=== PATIENT | female | born 1990 | race Caucasian/White ===

== ENCOUNTER → 2020-12-10 12:50 | Outpatient (CLI) | payer BC, SELFPAY ==
--- NOTE | ~2020-12-10 | US_ITS ---
EXAMINATION: US OB transvaginal DATE: 12/10/2020 13:28 INDICATION: of unknown dates TECHNIQUE: Real-time pelvic transabdominal and transvaginal ultrasound was performed. COMPARISON: None. FINDINGS: The uterus measures 8.9 x 5.8 x 6.9 cm. There is an intrauterine gestational sac. A yolk s ac is identified. heart motion is identified measuring 172 beats per minute (bpm) by M-mode Dop pler. The crown rump length measures 1.7 cm , which correlates with an estimated gestational ag e of 8 weeks and 0 day(s) (+/-) 5 day(s). The left ovary is not visualized however no left adnexal abnormality is seen. The right ovary measure s 2.4 x 2.8 x 2.7 cm. There is no free fluid in the pelvis. IMPRESSION: 1. Live intrauterine with an estimated gestational age of 8 weeks and 0 day(s) (+/-) 5 day( s) and an estimated delivery date of 07/22/2021. Reviewed, dictated and finalized at location A. IMPRESSION: 1. Live intrauterine with an estimated gestational age of 8 weeks and 0 day(s) (+/-) 5 day(s) and an estimated delivery date of 07/22/2021.
== END ==
PROVIDERS: Visit Provider Nurse Practitioner
DX: Z36.87 Encounter for antenatal screening for uncertain dates (principal); Z3A.08 8 weeks gestation of pregnancy
CPT/HCPCS: 76817

== ENCOUNTER 2021-07-08 11:09 | Outpatient (RCR) | payer BC, SELFPAY ==
--- NOTE | ~2021-07-08 | US_ITS ---
EXAMINATION: US OB BPP wo non-stress DATE: 07/08/2021 12:25 INDICATION: Failed nonstress test. Gestational diabetes. TECHNIQUE: Real-time pelvic ultrasound was performed. The interpreting radiologist was not present fo r the study. COMPARISON: None. FINDINGS: There is a single living fetus in vertex presentation. The placenta is anterior. cardiac activ ity and movement are demonstrated. heart rate is 157 beats per minute (bpm). Biophysical profile performed by the technologist: breathing (30 sec sustained breathing in 30 minutes): 2 out of 2 movement (3 gross body movements in 30 minutes): 2 out of 2 tone (one episode of wribxei-qzeutojnq-dyevbpt limb movement): 2 out of 2 Amniotic fluid pocket (2 cm): 2 out of 2 Total score: 8 out of 8 IMPRESSION: 1. Single living intrauterine in vertex presentation with heart rate of 157 bpm. 2. Normal placenta. 3. Biophysical profile 8 out of 8. Reviewed, dictated and finalized at location B. 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
[2021-07-08 13:08] VITALS: BP 128/74; PULSE 87
== END 2021-09-19 09:02 | disposition home or self-care (01) ==
LOC: ANHOBOP 11:09
PROVIDERS: Visit Provider Obstetrics & Gynecology Gynecology
DX: O24.419 Gestational diabetes mellitus in pregnancy, unspecified control (principal); O36.8330 Maternal care for abnormalities of the fetal heart rate or rhythm, third trimester, not applicable or unspecified; Z3A.38 38 weeks gestation of pregnancy
CPT/HCPCS: 59025; 76819

== ENCOUNTER 2021-07-18 05:04 | Inpatient (IN) | payer BC, SELFPAY ==
[2021-07-18] VITALS (205 sets, daily range): BP systolic 69–156; BP diastolic 38–116; PULSE 25–163; TEMP 36.1–37.8; O2SAT 78–100; BMI 47.8
--- NOTE | 2021-07-18 05:38 | LDADM ---
This patient, Felicia Munoz, was admitted to Labor/Delivery/Recovery 106 on 07/18/21 at 05:04. Plans for labor, pain management and were discussed with patient. Patient/family oriented to hospital policies and general routines including ID bracelet, bed and alarms, visiting hours, pain management, procedures, bathroom and other care routines, personal items, smoking policy, room service/diet and guest tray routines, infant security routines, and visiting hours. Patient/Family are encouraged to report perceived risks to care and to ask questions if they do not understand what they are told or what they should do. See OBIX for further documentation.
[2021-07-18 05:50] LABS: Basophils Percent Auto 0.2 % (0.2-1.2); Eosinophils Percent Auto 0.4 % (0-4.4); Hematocrit 39.8 % (37.0-47.0); Hemoglobin 13.3 g/dL (12.0-15.0); Immature Granulocyte Absolute 0.04 K/mm3 (0.00-0.031); Immature Granulocyte Percent A 0.4 % (0-0.5); Lymphocytes Percent Auto 17.1 % (18.3-44.2); Mean Corpuscular HGB Conc 33.4 g/dl (32-36); Mean Corpuscular Hemoglobin 32.6 pg (26-34); Mean Corpuscular Volume 97.5 fl (80-100); Mean Platelet Volume 10.1 fl (7.4-10.4); Monocytes Absolute Auto 0.6 K/mm3 (0.1-0.6); Monocytes Percent Auto 6.2 % (2.6-8.5); Neutrophils Absolute Auto 7.5 K/mm3 (1.3-6.7); Neutrophils Percent Auto 75.7 % (45.5-73.1); Platelet Count Result 247 k/mm3 (150-375); Red Blood Count 4.08 M/mm3 (4.2-5.4); Red Cell Distribution Width 13.2 % (11.5-14.5)
[2021-07-18] MEDS: LACTATED RINGERS 1,000 ML 125 ML IV CONT ×4 (05:51→17:23)
[2021-07-18] MEDS: OXYTOCIN 30 UNITS/NS 500 ML 30 UNITS/500 ML BAG 6 UNITS IV CONT (05:51)
[2021-07-18] MEDS: AMPICILLIN 2 GM/NS 100 ML 2 GM/100 ML BAG IVPB (05:51)
[2021-07-18 06:10] LABS: Alanine Aminotransferase 28 U/L (4-35); Albumin Level 3.5 g/dL (3.5-5.1); Alkaline Phosphatase 185 U/L (38-126); Anion Gap 7 mmol/L (8-16); Aspartate Amino Transferase 36 U/L (14-36); Bilirubin,Total 0.3 mg/dL (0.2-1.3); Blood Urea Nitrogen 10 mg/dL (7-17); Calcium 8.7 mg/dL (8.4-10.2); Carbon Dioxide 20 mmol/L (22-30); Chloride 107 mmol/L (98-107); Estimated CRCL calculation 177 ml/min; Estimated Glomerular Filt Rate > 60; Glucose 139 mg/dL (65-110); Potassium 3.5 mmol/L (3.4-5.0); Sodium 134 mmol/L (137-145)
--- NOTE | 2021-07-18 07:47 | WPDOBADMIT ---
Obstetrics - Admit Note Admission Note: record reviewed. No pertinent additions to the history and/or any subsequent changes in the physical findings that are not consistent with the expected course of the were found. Additions to the history and/or subsequent changes in the physical findings follow. Here for MIL for GDMA2. cervix 4/70/-2 AROM with clear fluid. FHTs reactive. Continue pitocin.
[2021-07-18 08:52] LABS: Rapid Plasma Reagin Non-Reactive (NonReactive)
[2021-07-18 09:27] LABS: Glucose Point of Care 94 mg/dl (65-105)
[2021-07-18] MEDS: AMPICILLIN 1 GM/NS 50 ML 1 GM/50 ML BAG IVPB ×2 (09:59→14:06)
[2021-07-18 14:17] LABS: Glucose Point of Care 104 mg/dl (65-105)
[2021-07-18 16:10] LABS: Glucose Point of Care 74 mg/dl (65-105)
[2021-07-18] MEDS: CALCIUM CARBONATE (TUMS) 500 MG (200 MG ELEMENTAL) PO (17:14)
[2021-07-18] MEDS: FAMOTIDINE 20 MG/2 ML VIAL IV PUSH (17:15)
[2021-07-18 17:52] LABS: Glucose Point of Care 77 mg/dl (65-105)
[2021-07-18 19:57] LABS: Glucose Point of Care 76 mg/dl (65-105)
[2021-07-18] MEDS: LIDOCAINE HCL 1% LOCAL INJ 10 ML VIAL (23:00)
--- NOTE | 2021-07-18 23:12 | PM.OBPRVD ---
OB - Delivery Note Procedure Delivery date: 07/18/21 Events: Gestational Diabetes (A2) Induction method: AROM and Per Pitocin Protocol Delivery monitor: External FHT and External Uterine Route of delivery: Laceration Description: Perineal - 2nd Degree Delivery repair: vicryl (3-0) Specimen: Yes (placenta) Quantitative Blood Loss (ml): 250 Anesthesia type: Epidural Disposition: Floor [place] Baby Date of : 07/18/21 Weeks of gestation at delivery: 39 Infant gender: Female Weight (pounds): 9 Weight (ounces): 6 presentation: vertex position: Right Occiput Anterior Placenta delivery description: Spontaneous Cord Vessel Description: Nuchal Cord (delivered) score one minute: 9 score five minutes: 9
--- NOTE | 2021-07-18 23:14 | PM.OBDSVD ---
DS: Admitting Diagnosis Discharge Date 07/20/21 Admitting Diagnosis IUP 39 wks for MIL for GDMA2 DS: Discharge Diagnosis Discharge Diagnosis (1) (normal spontaneous vaginal delivery): Code(s): O80 - Encounter for full-term uncomplicated delivery Status: Acute OB - DS: Summary OB Procedures : NST and Ultrasound OB Procedures Intrapartum: Spontaneous Vag Delivery OB Procedures: : None Peripartum Data Infant Delivery Method: Natural Vaginal Laceration Description: Perineal - 2nd Degree complications: none Status at Discharge Functional status at discharge: independent ambulation Overall status at discharge: patient is progressing back to baseline Time Spent with Patient Time attestation: Total time spent providing and/or coordinating discharge services: DS: Data Data Completed and Pending Labs on day of discharge: Labs from last 24 hours 07/18/21 07/18/21 07/18/21 19:54 17:48 16:03 WBC RBC Hgb Hct MCV MCH MCHC RDW Plt Count MPV Immature Gran % (Auto) Neut % (Auto) Lymph % (Auto) [place] % (Auto) Eos % (Auto) Baso % (Auto) Lymph # (Auto) [place] # (Auto) Eos # (Auto) Baso # (Auto) Abs Immat Gran (auto) Absolute Neuts (auto) Absolute Nucleated RBC Nucleated RBC % Sodium Potassium Chloride Carbon Dioxide Anion Gap BUN Creatinine Estim Creat Clear Calc Estimated GFR Glucose POC Capillary Glucose 76 77 74 Calcium Total Bilirubin AST ALT Alkaline Phosphatase Total Protein Albumin RPR Blood Type Antibody Screen 07/18/21 07/18/21 07/18/21 14:04 09:23 05:44 WBC RBC Hgb Hct MCV MCH MCHC RDW Plt Count MPV Immature Gran % (Auto) Neut % (Auto) Lymph % (Auto) [place] % (Auto) Eos % (Auto) Baso % (Auto) Lymph # (Auto) [place] # (Auto) Eos # (Auto) Baso # (Auto) Abs Immat Gran (auto) Absolute Neuts (auto) Absolute Nucleated RBC Nucleated RBC % Sodium 134 L Potassium 3.5 Chloride 107 Carbon Dioxide 20 L Anion Gap 7 L BUN 10 Creatinine 0.50 L Estim Creat Clear Calc 177 Estimated GFR > 60 Glucose 139 H POC Capillary Glucose 104 94 Calcium 8.7 Total Bilirubin 0.3 AST 36 ALT 28 Alkaline Phosphatase 185 H Total Protein 6.0 L Albumin 3.5 RPR Blood Type Antibody Screen 07/18/21 07/18/21 07/18/21 05:44 05:44 05:44 WBC 10.0 RBC 4.08 L Hgb 13.3 Hct 39.8 MCV 97.5 MCH 32.6 MCHC 33.4 RDW 13.2 Plt Count 247 MPV 10.1 Immature Gran % (Auto) 0.4 Neut % (Auto) 75.7 H Lymph % (Auto) 17.1 L [place] % (Auto) 6.2 Eos % (Auto) 0.4 Baso % (Auto) 0.2 Lymph # (Auto) 1.70 [place] # (Auto) 0.6 Eos # (Auto) 0.0 Baso # (Auto) 0.0 Abs Immat Gran (auto) 0.04 H Absolute Neuts (auto) 7.5 H Absolute Nucleated RBC 0.0 Nucleated RBC % 0.0 Sodium Potassium Chloride Carbon Dioxide Anion Gap BUN Creatinine Estim Creat Clear Calc Estimated GFR Glucose POC Capillary Glucose Calcium Total Bilirubin AST ALT Alkaline Phosphatase Total Protein Albumin RPR Non-reactive Blood Type O Positive Antibody Screen Negative Discharge Plan Discharge Attending physician on discharge: Miguelina Milian Discharging Clinician: Miguelina Milian Anticipated Discharge Date/Time: 07/20/21 23:15 Patient Disposition: Home, Self-Care Activity: may shower and pelvic rest Diet: regular Patient Instructions: Antibiotic Form Stand Alone Forms: General Discharge Information Follow-up/Referrals: Miguelina Milian MD [Physician] - 6 Weeks Discharge Medications: New norethindrone (contraceptive) 0.35 mg tablet 0.35 mg PO DAILY Qty: 84 RF:
[2021-07-18] MEDS: OXYTOCIN 30 UNITS/NS 500 ML 30 UNITS/500 ML BAG 125 UNITS IV CONT (23:41)
[2021-07-19] VITALS (12 sets, daily range): BP systolic 95–152; BP diastolic 62–109; PULSE 82–105; RESP 16–18; TEMP 36.3–37.4; O2SAT 96–99
[2021-07-19] MEDS: IBUPROFEN 600 MG TABLET PO ×3 (01:45→17:24)
--- NOTE | 2021-07-19 02:04 | PC.NURSE ---
Patient transferred to post room #284 via w/c. Support person, Jero, present. Oriented to unit, room, information board, rooming in, admission packet and security measures. Patient verbalizes understanding.
[2021-07-19] MEDS: LANOLIN (LANSINOH) 7.5 GM CREAM 1 APPLIC TOPICAL (02:30)
[2021-07-19 04:51] LABS: Hematocrit 34.6 % (37.0-47.0); Hemoglobin 11.8 g/dL (12.0-15.0)
--- NOTE | 2021-07-19 07:10 | PM.OBPNVD ---
OB - PN: Subj Subjective Date/time seen: 07/19/21 07:10 Patient comments: no complaints baby status: doing well OB - PN: Obj Data Labs CBC & Chem 7: 07/19/21 04:22 07/18/21 05:44 Labs: Laboratory Results - last 24 hr 07/18/21 07/18/21 07/18/21 05:44 09:23 14:04 Hgb Hct POC Capillary Glucose 94 104 RPR Non-reactive 07/18/21 07/18/21 07/18/21 16:03 17:48 19:54 Hgb Hct POC Capillary Glucose 74 77 76 RPR 07/19/21 04:22 Hgb 11.8 L Hct 34.6 L POC Capillary Glucose RPR OB - PN A/P Plan day: 1 Plan: routine care Time Spent With Patient Time: Total time spent is greater than 50% in coordination of care (as documented) at patient's floor/unit and/or counseling patient: Exam : Bimanual exam- vagina & uterus: other (Uterus firm, nt @U)
--- NOTE | 2021-07-19 07:32 | WPDANLDNPN2 ---
Anes-Prog Note L&D-Neuraxial Date/Time: 07/19/21 07:32 Patient feedback: Patient satisfied with post-operative pain management.
--- NOTE | 2021-07-19 09:13 | PC.NURSE ---
[id number] Introductions were made and consulted with patient to assess needs related to . Mother led conversation with her experience with feeding baby so far. Mother is resting and infant is asleep in the open crib swaddled. Reviewed good handwashing when working with , breast, nipples and how to protect the nipples with a deep latch. Encouraged understanding the benefits of skin to skin, responding to feeding cues, frequencies of feeding 8-12 times in 24 hours (approximately 2-3 hours), duration of feedings, milk production, intake/output feeding sheet and signs of adequate intake. Discussed stimulating with skin to skin, hand expressing colostrum, touch and talking to infant to encourage eating at the breast. Reviewed positioning and alignment, supporting breast, off-centered (asymmetrical latch) and leading with the chin with big open wide gape. Breast are visualized and small bruises on the areola are noticed from previous feedings. Mother states that when she had breastfed earlier if felt pinchy and the nipple was misshaped after feeding. Blood sugar on infant is appropriate at 64. Infant is placed skin to skin between breast on mother's chest and minimal feeding cues are observed, then infant sleeps. Mother demonstrates hand expression and places scant drops of colostrum into infant mouth. Infant is either crying, sleepy or latching shallow at the breast. Resources used to facilitate learning were used from the visual handout/ tool/mom and baby guide. Mother voiced understanding responding to feeding cues, may need to stimulating infant approximately 2-3 hours from the start of the last feeding, calling for assistance for latching, if the does not latch or there discomfort . Reported to primary RN.
[2021-07-19] MEDS: MULTIVIT/MIN/PREN/FOL AC/IRON TABLET 1 TAB PO (09:52)
--- NOTE | 2021-07-19 11:57 | PC.NURSE ---
[id number] Mother is skin to skin with infant and works well with to encourage optimal latch with . Infant is sleepy and reluctant to latch. Infant will show feeding signs rarely when placed on mother's chest, then either cry, wide open gape attempt to latch and holds nipple in her mouth, or she will sleep. After many attempts mother received education well with regards to aids, milk production, along with risks and benefits of each. Mother is willing to try pumping to bring her nipple out, has demonstrated nipple stimulation with stretching, and is open to the idea of attempting with a nipple shield. Breast pump provided due to ineffective and mother's desire to breastfeed and make human milk for her infant. Reviewed information regarding pump care, hand washing, nipple care and pumping 8 times in 24 hours (1-2 at night) for 10-15 minutes. Discussed she may want to pump after feedings or between feedings. If after feeding, rest for 5-10 minutes. Get something to eat/drink, use the restroom, then pump. Collection and storage of breastmilk per mom and baby guide. Encouraged mom to place skin to skin, breast massage and use hand expression and/or a breast pump in a relaxing atmosphere. Reviewed recording pumping schedule on the feeding sheet. Mom had one drop of colostrum after pumping. Nipple shield provided to mother due to ineffective . Reviewed good handwashing, cleaning the nipple shield and application. Discussed with mom the nipple shield precautions and possible complications. Mom and baby guide referred to as a resource for using a nipple shield, out-patient services and when to call a provider. Mom voiced understanding of the importance of hand expression, nipple stimulation and initiating a pumping schedule if continues to nurse with the shield. Attempted to breast with the nipple shield and infant was reluctant to demonstrate big open wide gape. Baby moved to chest demonstrating working with what seems to be fluid that either needs to be spit up or processed through the digestive system. Mother is encouraged to call out for latch assistance, if infant doesn't latch or there's discomfort with the latch. Reported to primary RN.
[2021-07-20] MEDS: IBUPROFEN 600 MG TABLET PO ×2 (03:45→12:53)
--- NOTE | 2021-07-20 07:26 | PM.OBPNVD ---
OB - PN: Subj Subjective Date/time seen: 07/20/21 07:26 Patient comments: no complaints and pain well controlled baby status: doing well OB - PN: Obj Data Labs CBC & Chem 7: 07/19/21 04:22 07/18/21 05:44 OB - PN A/P Plan day: 2 Plan: routine care, discharge home, follow up 6 weeks and other (Micronor) Time Spent With Patient Time: Total time spent is greater than 50% in coordination of care (as documented) at patient's floor/unit and/or counseling patient: Exam : Bimanual exam- vagina & uterus: other (Uterus firm, nt @U)
[2021-07-20 07:35] VITALS: BP 118/70; PULSE 88; RESP 18; TEMP 36.7; O2SAT 98
[2021-07-20] MEDS: MULTIVIT/MIN/PREN/FOL AC/IRON TABLET 1 TAB PO (08:41)
[2021-07-20] MEDS: ACETAMINOPHEN 325 MG TABLET 650 MG PO (08:41)
[2021-07-20] MEDS: DOCUSATE SODIUM 100 MG CAPSULE PO (08:41)
--- NOTE | 2021-07-20 12:26 | PC.NURSE ---
1010 Consulted with patient to assess needs related to . Mother led conversation with her experience with feeding baby so far. Mother works well with her infant. Reviewed good handwashing when working with , breast, nipples and how to protect the nipples with a deep latch. Encouraged understanding the benefits of skin to skin, responding to feeding cues, frequencies of feeding 8-12 times in 24 hours (approximately 2-3 hours), duration of feedings, milk production, intake/output feeding sheet and signs of adequate intake. Discussed stimulating infant with skin to skin, hand expressing colostrum, touch and talking to to encourage eating at the breast. Reviewed positioning and alignment, supporting breast, off-centered (asymmetrical latch) and leading with the chin with big open wide gape. Infant latched optimally to the left breast in a unconventional cross cradle position. Education given to mother of how to visualize suck/swallow ratios and drinking at the breast. Infant was able to maintain latch without discomfort to mother. Nipple care, comfort and healing with warm, wet washcloth to rinse breast and leave to air-dry. Colostrum may be left on nipples to dry but have clean hands when touching the nipple/breast. Resources used to facilitate learning were used from the visual handout/ tool/mom and baby guide. Mother voiced understanding responding to feeding cues, may need to stimulating approximately 2-3 hours from the start of the last feeding, calling for assistance if the does not latch or there discomfort . Reported to primary RN.
[2021-07-20] MEDS: MEASLES,MUMPS,RUBELLA VACCINE 0.5 ML VIAL SUB-Q (12:45)
--- NOTE | 2021-07-20 14:38 | PC.NURSE ---
Patient was given the opportunity to view the discharge video Mother & Baby Care, The First Two Weeks and to ask questions. Patient declined viewing the video and has been given the mother/baby guide for home reference. Pt stated she will watch it at home.
[2021-07-21 09:51] VITALS: BP 146/82; PULSE 84; RESP 20; TEMP 37.2; O2SAT 100
== END 2021-07-20 14:30 | disposition home or self-care (01) | DRG 807 ==
LOC: ANHLDR 23:16 → ANHOB2 07-19 02:07
PROVIDERS: Admitting Provider Obstetrics & Gynecology Gynecology; Visit Provider Obstetrics & Gynecology Gynecology
DX: O24.429 Gestational diabetes mellitus in childbirth, unspecified control (principal); Z37.0 Single live birth; Z3A.39 39 weeks gestation of pregnancy; O36.8330 Maternal care for abnormalities of the fetal heart rate or rhythm, third trimester, not applicable or unspecified; O99.824 Streptococcus B carrier state complicating childbirth; O70.1 Second degree perineal laceration during delivery; O69.81X0 Labor and delivery complicated by cord around neck, without compression, not applicable or unspecified; O77.0 Labor and delivery complicated by meconium in amniotic fluid
CPT/HCPCS: 36415; 80053; 82948; 85014; 85018; 85025; 86592; 86850; 86900; 86901; 88307; 90710; A9270; J0131; J0290; J2590; J2795; J7120

== ENCOUNTER 2021-09-01 11:40 | Emergency (ER) | payer BC, SELFPAY ==
--- NOTE | ~2021-09-01 | XR_ITS ---
EXAMINATION: XR foot LT min 3V EXAM DATE: 09/01/2021 12:00 INDICATION: Injury to lt foot on dorsal side, pain. Initial encounter. TECHNIQUE: Left foot dorsoplantar, lateral and oblique projections obtained and reviewed. There is n o prior study for comparison. FINDINGS: Left metatarsal bones unremarkable. Small calcaneal spurs. There are no acute fractures or dislocations identified. There is no subcutaneous gas. The soft tissue is unremarkable. There are no radiopaque foreign bodies. IMPRESSION: No acute osseous findings. Reviewed, dictated and finalized at location A. IMPRESSION: No acute osseous findings.
--- NOTE | 2021-09-01 11:41 | ED.LOWEXIN ---
HPI - Extremity Injury (Lower) General Chief Complaint: Extremity Injury, Lower Stated Complaint: Left foot Pain Time Seen by Provider: 09/01/21 11:41 Source: patient Mode of arrival: ambulatory Limitations: no limitations History of Present Illness HPI Narrative: Ms. Munoz is a 31-year-old female patient presenting to the clinic today with complaints of left foot pain x2 days. She reports she was going down her stairs and stepped wrong and injured her foot. Reports the pain is just below her right great toe on top and to the bottom of the foot. Swelling noted. Resting alleviates pain and walking aggravates the pain. Related Data Home Medications Medication Instructions Recorded Confirmed metoclopramide HCl 10 mg PO DAILY 09/01/21 09/01/21 Allergies Allergy/AdvReac Type Severity Reaction Status Date / Time No Known Allergies Allergy Unverified 09/01/21 11:55 Review of Systems Review of Systems: Pertinent positives per HPI. Patient denies any fever, chills, rash, headache, visual changes, dizziness, cough, runny nose, sore throat, shortness of breath, chest pain, palpitations, nausea, vomiting, diarrhea, constipation, abdominal pain, or any urinary issues. [facility] Family History Family History Other No pertinent family history Social History Social History Smoking status: Never smoker Second hand tobacco smoke exposure: No Substance use: never Spiritual care concerns: No Comments At the time of my signature, I reviewed and agree with the nursing past medical, surgical, social, and family history. There is no relevant family history pertinent to the patient complaint. Exam Narrative: General: Well-developed, obese, in no apparent distress Head: Normocephalic, atraumatic. Cardio: Regular rate and rhythm, s1 and s2 normal, no murmur appreciated. Resp: Clear to auscultation bilaterally, no rhonchi, rales, wheezing or rubs. Musculoskeletal: No deformity, tender to palpation over the first metatarsal, swelling noted over the first metatarsal as well as exquisite tenderness to palpation, grossly normal range of motion, muscle strength strong and equal, peripheral pulse strong, no cyanosis, limping gait and station Course Course Emergency Course: Portions of this record may have been created with voice recognition software. Level of Care: Express Care Visit Vital Signs Vital signs: Vital signs reviewed MDM - Extremity Injury (Lower) MDM Narrative Medical decision making narrative: At the time of visit patient is resting comfortably on the exam table. Has moderate swelling to the dorsal and plantar aspect of the first metatarsal of the left foot. X-ray was completed and was negative for any obvious fracture or malalignment. I suspect a foot strain and discussed supportive measures with patient Differential Diagnosis Differential diagnosis: Likely other (Foot fracture, foot sprain, gout, tendon rupture) Imaging Data Attestation: I personally reviewed and interpreted this imaging study as follows: My impression: Negative for any fracture or malalignment of the left foot Radiologist's impression: Express Care [address] [phone] XRay ReportSigned Patient: Felicia Munoz MDOB: 1990MR#: [id number]/Sex: 31 / FAcct:[id number]: EXPCOLL ADM Date: 09/01/21Attending Dr: Ordering Physician: Ashu Camargo APRN Date of Service: 09/01/21 Procedure(s): XR foot LT min 3V Accession Number(s): [id number] cc: Ashu Camargo APRN; GEOTHERMAL OPERATING ENGINEER PHYSICIAN~ EXAMINATION: XR foot LT min 3V EXAM DATE: 09/01/2021 12:00 INDICATION: Injury to lt foot on dorsal side, pain. Initial encounter. TECHNIQUE: Left foot dorsoplantar, lateral and oblique projections obtained and reviewed. There is no prior study for comparison
[2021-09-01 11:49] VITALS: BP 150/100; PULSE 76; RESP 16; TEMP 36.3; O2SAT 99
== END 2021-09-01 12:10 | disposition home or self-care (01) ==
PROVIDERS: Emergency Provider Nurse Practitioner Family
DX: S93.602A Unspecified sprain of left foot, initial encounter (principal); X58.XXXA Exposure to other specified factors, initial encounter
CPT/HCPCS: 73630; 99213; G0463

== ENCOUNTER 2022-10-19 14:17 | Emergency (ER) | payer OTHER, SELFPAY ==
--- NOTE | 2022-10-19 14:24 | ED.GENADULT ---
HPI - General Adult General Chief complaint: Fever Stated complaint: Fever,Bodyaches Source: patient and RN notes reviewed History of Present Illness HPI narrative: 32 yo F presents to urgent care with complaints of body aches, sore throat, chills, fevers, [place], and slight cough since last night. Pt states her fever reached 100 F last night. Pt states her cough makes her head hurt worse. Pt states her daughter had the same symptoms last week and was dx with a viral illness. Denies any chest pain, SOB, vomiting, or diarrhea. Denies any congestion or ear pain. Pt took some Tylenol this morning. Related Data Allergies Allergy/AdvReac Type Severity Reaction Status Date / Time No Known Allergies Allergy Verified 10/19/22 14:24 Review of Systems Review of Systems: Pertinent positives and pertinent negatives per HPI. [facility] Family History Family History Other No pertinent family history Social History Social History Smoking status: Never smoker Second hand tobacco smoke exposure: No Substance use: never Spiritual care concerns: No Comments At the time of my signature, I reviewed and agree with the nursing past medical, surgical, social, and family history. There is no relevant family history pertinent to the patient complaint. Exam Narrative: GENERAL: This is a well-nourished, well-developed patient, in no apparent distress. HEAD: normocephalic, atraumatic. EYES: Sclera clear/white. Vision is grossly intact. EARS: External ears normal, auditory canals clear and without drainage, TMs normal without perforation. Hearing grossly intact. NOSE: External nose normal with no obvious nasal discharge, nares without redness, no rhinorrhea. THROAT: Mucous membranes moist, posterior pharynx clear. NECK: Neck supple, non-tender without lymphadenopathy, masses or thyromegaly. CARDIOVASCULAR: Regular rate and rhythm without murmurs, gallops, or rubs. RESPIRATORY: Clear to auscultation. Breath sounds equal bilaterally. No wheezes, rales, or rhonchi. NEURO: awake, alert, and oriented to person, place and time. There were no obvious focal neurologic abnormalities. EXTREMITIES: No clubbing, cyanosis, or edema. No joint tenderness, effusion, or edema noted. BACK: Nontender without deformity or crepitus. No flank tenderness. Course Course Level of Care: Express Care Visit Vital Signs Vital signs: Vital Signs Temperature 98.5 F 10/19/22 14:25 Pulse Rate 91 10/19/22 14:25 Respiratory Rate 18 10/19/22 14:25 Blood Pressure 132/86 10/19/22 14:25 Pulse Oximetry 98 10/19/22 14:25 Oxygen Delivery Room Air 10/19/22 14:25 Temperature 98.5 F 10/19/22 14:25 Pulse Rate 91 10/19/22 14:25 Respiratory Rate 18 10/19/22 14:25 Blood Pressure 132/86 10/19/22 14:25 Pulse Oximetry 98 10/19/22 14:25 Oxygen Delivery Room Air 10/19/22 14:25 Reviewed Medical Decision Making MDM Narrative Medical decision making narrative: Viral illness may last between 7-21 days; antibiotics do not cure viral illness and are NOT recommended at this time. Also, recommend symptomatic treatment includes: rest, fluids, and increase humidity of the air at home. Recommend Acetaminophen as directed on the bottle to reduce fever, pain, headache. Please schedule a follow-up visit with your personal physician for further evaluation and treatment within 3-5days. If your symptoms persist, change or worsen significantly before you can contact your personal physician then please, without delay, go to the emergency department for further evaluation. Differential Diagnosis Differential Diagnosis: URI, strep throat, pharyngitis Vital Signs Vital Signs: Vital Signs Temperature 98.5 F 10/19/22 14:25 Pulse Rate 91 10/19/22 14:25 Respiratory Rate 18 10/19/22 14:25 Blood Pressure 132/86
[2022-10-19 14:25] VITALS: BP 132/86; PULSE 91; RESP 18; TEMP 36.9; O2SAT 98
== END 2022-10-19 14:48 | disposition home or self-care (01) ==
PROVIDERS: Emergency Provider Nurse Practitioner Family
DX: B34.9 Viral infection, unspecified (principal)
CPT/HCPCS: 87081; 87880; 99213; G0463

== ENCOUNTER 2023-02-05 08:41 | Outpatient (CLI) | payer OTHER, SELFPAY ==
[2023-02-05 09:30] LABS: Glucose Fasting 91 mg/dL
[2023-02-05 11:46] LABS: Glucose 2 Hour 83 mg/dL
[2023-02-05 12:52] LABS: Glucose 1 Hour 66 mg/dL
== END 2023-02-05 08:42 | disposition home or self-care (01) ==
LOC: ANHLAB 08:43
PROVIDERS: Visit Provider Nurse Practitioner
DX: O24.419 Gestational diabetes mellitus in pregnancy, unspecified control (principal); Z3A.00 Weeks of gestation of pregnancy not specified
CPT/HCPCS: 36415; 82951